=== PATIENT | female | born 2000 | race American Indian/Alaskan Native ===

== ENCOUNTER 2020-12-19 19:13 | Emergency (ER) | payer OTHER, SELFPAY ==
--- NOTE | 2020-12-19 19:22 | Event Note ---
ED Screening Note ED Screening Note: Patient is a 20-year-old female presents emergency room complaints of shortness of breath that occurred today she has associated pain when she takes a deep breath and CP She tested positive for COVID-19 She has been feeling sick for approximately 5 days she has associated generalized body aches, generalized weakness, fever, chills, vomiting states she is only been able to tolerate water she is on oral control pills This initial assessment/diagnostic orders/clinical plan/treatment(s) is/are subject to change based on patients health status, clinical progression and re- assessment by fellow clinical providers in the ED. Further treatment and workup at subsequent clinical providers discretion. Patient/guardian urged not to elope from the ED as their condition may be serious if not clinically assessed and managed. Initial orders include: labs, EKG, XR
[2020-12-19] MEDS ORDERED: ONDANSETRON 4 MG/2 ML INJ IV ONE (19:53)
[2020-12-19] MEDS ORDERED: SODIUM CHLORIDE 0.9% 1000 ML 1,000 ML IV ONE (19:53)
--- NOTE | 2020-12-19 19:53 | Emergency Department Report ---
HPI - General Chief Complaint: Dyspnea/Respdistress Time Seen by Provider: 12/19/20 19:19 - HPI HPI: This is a 20-year-old -[place] female presents to the emergency department with the complaint of a 4 to 5-day history of nausea with vomiting and body aches, intermittent fever, and a 2-day history of shortness of breath. The patient was tested last Sunday for COVID-19 and found out the next day that she was positive. She has a past medical history of anemia. Due to the nausea with vomiting, the patient has not been able to take anything for her symptoms over the past few days and says that she has not been able to keep down any food or liquids. No recent travel or sick contacts at home. She denies any tobacco or illicit drug use. She denies any chest pain, lower extremity swelling, constipation, diarrhea but does have an intermittent cough. ED Past Medical Hx - Past Medical History Previous Medical History?: Yes Additional medical history: Anemia - Medications Home Medications: Home Medications Medication Instructions Recorded Confirmed Last Taken Type Albuterol Mdi (or & Nicu Only) 2 puff IH QID PRN #8.5 gram 12/19/20 Unknown Rx [ProAir HFA Inhaler] Ondansetron [Zofran Odt] 4 mg PO Q8HR PRN #15 tab.rapdis 12/19/20 Unknown Rx ED Review of Systems ROS: Stated complaint: COVID+/CINTHIA Other details as noted in HPI Comment: All other systems reviewed and negative Constitutional: chills, fever Eyes: denies: eye pain, vision change ENT: denies: ear pain, throat pain Respiratory: cough, shortness of breath Cardiovascular: denies: chest pain, edema Gastrointestinal: nausea, vomiting Genitourinary: denies: dysuria, discharge Musculoskeletal: myalgia. denies: joint swelling Skin: denies: rash, lesions Neurological: denies: numbness, paresthesias Physical Exam - Physical Exam Vital Signs: Vital Signs 12/19/20 19:16 Temperature 99.8 F H Pulse Rate 134 H Respiratory 30 H Rate O2 Sat by Pulse 100 Oximetry Physical Exam: GENERAL: The patient is well-developed well-nourished. HENT: Normocephalic. Atraumatic. Patient has moist mucous membranes. EYES: Extraocular motions are intact. NECK: Supple. Trachea is midline. CHEST/LUNGS: Clear to auscultation. Mild tachypnea, but no accessory muscle use. No conversational dyspnea. There is no respiratory distress noted. HEART/CARDIOVASCULAR: Regular. There is mild tachycardia. There is no murmur. ABDOMEN: Abdomen is soft, nontender. Patient has normal bowel sounds. There is no abdominal distention. SKIN: Skin is warm and dry. NEURO: The patient is awake, alert, and oriented. The patient is cooperative. The patient has no focal neurologic deficits. Normal speech. MUSCULOSKELETAL: There is no tenderness or deformity. There is no limitation range of motion. ED Course Vital Signs 12/19/20 19:16 Temperature 99.8 F H Pulse Rate 134 H Respiratory 30 H Rate O2 Sat by Pulse 100 Oximetry ED Medical Decision Making - Lab Data Result diagrams: 12/19/20 20:43 12/19/20 19:34 Lab Results 12/19/20 12/19/20 12/19/20 Range/Units 19:34 19:34 19:34 WBC (4.5-11.0) K/mm3 RBC (3.65-5.03) M/mm3 Hgb (10.1-14.3) gm/dl Hct (30.3-42.9) % MCV (79-97) fl MCH (28-32) pg MCHC (30-34) % RDW (13.2-15.2) % Plt Count (140-440) K/mm3 Lymph % (Auto) (13.4-35.0) % Mitchell % (Auto) (0.0-7.3) % Eos % (Auto) (0.0-4.3) % Baso % (Auto) Lymph # (Auto) (1.2-5.4) K/mm3 Mitchell # (Auto) (0.0-0.8) K/mm3 Eos # (Auto) (0.0-0.4) K/mm3 Baso # (Auto) (0.0-0.1) K/mm3 Seg Neutrophils % (40.0-70.0) % Seg Neutrophils # (1.8-7.7) K/mm3 D-Dimer 466.75 H (0-234) ng/mlDDU Sodium 137 (137-145) mmol/L Potassium 3.7 (3.6-5.0) mmol/L Chloride 98.7 (98-107) mmol/L Carbon Dioxide 24 (22-30) mmol/L Anion Gap 18 mmol/L BUN 10 (7-17) mg/dL Creatinine 1.2 (0.6-1.2) mg/dL Estimated GFR 57 ml/min BUN/Creatinine Ratio 8 % Glucose 88 (65-100) mg/dL Calcium 9.2 (8.4-10.2) mg/dL Total Bilirubin 0.20 (0.1-1.2) mg/dL AST 27 (5-40) units/L ALT 16 (7-56) units/L Alkaline Phosphatase 51 (35-129) units/L Troponin T (0.00-0.029) ng/mL NT-Pro-B Natriuret Pep (0-450) pg/mL Total Protein 8.4 H (6.3-8.2) g/dL Albumin 4.0 (3.9-5) g/dL Albumin/Globulin Ratio 0.9 % Lipase 52 (13-60) units/L HCG, Qual Negative (Negative) 12/19/20 12/19/20 Range/Units 19:34 20:43 WBC 3.7 L (4.5-11.0) K/mm3 RBC 3.97 (3.65-5.03) M/mm3 Hgb 12.0 (10.1-14.3) gm/dl Hct 34.9 (30.3-42.9) % MCV 88 (79-97) fl MCH 30 (28-32) pg MCHC 34 (30-34) % RDW 12.8 L (13.2-15.2) % Plt Count 185 (140-440) K/mm3 Lymph % (Auto) 37.3 H (13.4-35.0) % Mitchell % (Auto) 14.4 H (0.0-7.3) % Eos % (Auto) 1.0 (0.0-4.3) % Baso % (Auto) [employer] Lymph # (Auto) 1.4 (1.2-5.4) K/mm3 Mitchell # (Auto) 0.5 (0.0-0.8) K/mm3 Eos # (Auto) 0.0 (0.0-0.4) K/mm3 Baso # (Auto) 0.0 (0.0-0.1) K/mm3 Seg Neutrophils % 46.6 (40.0-70.0) % Seg Neutrophils # 1.7 L (1.8-7.7) K/mm3 D-Dimer (0-234) ng/mlDDU Sodium (137-145) mmol/L Potassium (3.6-5.0) mmol/L Chloride (98-107) mmol/L Carbon Dioxide (22-30) mmol/L Anion Gap mmol/L BUN (7-17) mg/dL Creatinine (0.6-1.2) mg/dL Estimated GFR ml/min BUN/Creatinine Ratio % Glucose (65-100) mg/dL Calcium (8.4-10.2) mg/dL Total Bilirubin (0.1-1.2) mg/dL AST (5-40) units/L ALT (7-56) units/L Alkaline Phosphatase (35-129) units/L Troponin T < 0.010 (0.00-0.029) ng/mL NT-Pro-B Natriuret Pep 11.87 (0-450) pg/mL Total Protein (6.3-8.2) g/dL Albumin (3.9-5) g/dL Albumin/Globulin Ratio % Lipase (13-60) units/L HCG, Qual (Negative) - Radiology Data Radiology results: report reviewed, image reviewed interpreted by me: Chest x-ray does not show any acute process. There are no pleural effusions, obvious pneumonia and there is no pneumothorax. No widened mediastinum. CTA chest with contrast INDICATION : SOB, elevated dimer. TECHNIQUE: Axial imaging performed through the chest, with contrast bolus timing set to maximize opacification of the pulmonary arteries. 3-plane MIP reformatted images were obtained. All CT scans at this location are performed using CT dose reduction for ALARA by means of automated exposure control. 100 mL of intravenous contrast administered. COMPARISON: None FINDINGS: Bolus/PTE: Contrast bolus timing is adequate. No filling defect is present to suggest PTE. Mediastinum: Heart and great vessels appear normal. No pathologic mediastinal adenopathy. Lungs: There is minimal bibasilar dependent atelectasis. Lungs are otherwise clear. Upper abdomen: Limited imaging of the upper abdomen shows nothing acute. Bones: Degenerative changes in the spine with nothing acute. IMPRESSION: Negative for PTE. Clear lungs. - Medical Decision Making This patient presents to the emergency department with a complaint of some shortness of breath and nausea with vomiting after being diagnosed with COVID-19 about 5 days ago. The patient did present with a low-grade fever, tachycardia, and some tachypnea. By the time she was back in room #40 the tachycardia and tachypnea had improved, but not yet resolved. An IV was placed and she was given Zofran and a liter of IV fluid resuscitation. Chest x-ray does not show any pneumonia, pleural effusions, pneumothorax, widened mediastinum, or any other acute process. Patient's labs are mostly unremarkable including CBC, metabolic panel, lipase, and the patient is not . She did have an elevated D-dimer level, and for this reason the patient had a CT angiography of the chest. This CT imaging did not show any PE or any other acute process. She was reevaluated multiple times over multiple hours and appears improved. The tachycardia and tachypnea have resolved. The patient is able to pass an oral challenge. She was walked around the emergency department and did not have any oxygen desaturation or significant increased work of breathing. For all these reasons the patient appears safe for discharge home at this time. She has been given a prescription for Zofran ODT and an albuterol inhaler. She will return to the ER with any worsening of her symptoms or with any acute distress. Critical Care Time: No Critical care attestation.: If time is entered above; I have spent that time in minutes in the direct care of this critically ill patient, excluding procedure time. ED Disposition Clinical Impression: COVID-19, Shortness of breath Nausea & vomiting Qualifiers: Vomiting type: unspecified Vomiting Intractability: non-intractable Qualified Code(s): R11.2 - Nausea with vomiting, unspecified Disposition: DC-01 TO HOME OR SELFCARE Is pt being admited?: No Condition: Stable Instructions: COVID-19, Shortness of Breath, Adult, Nausea and Vomiting, Adult, Prevent the Spread of COVID-19 if You Are Sick - [facility] [place] Additional Instructions: Given your COVID-19 infection, please isolate/quarantine yourself from anybody who is not vaccinated, who is immunocompromised, elderly, young, chronically ill or debilitated. Please follow-up with a primary care physician. Increase your oral rehydration. Return to the emergency department with any worsening of your symptoms, new or concerning symptoms not addressed during this current emergency department visit, or with any acute distress. Prescriptions: Albuterol Mdi (or & Nicu Only) [ProAir HFA Inhaler] 2 puff IH QID PRN #8.5 gram PRN Reason: Shortness Of Breath Ondansetron [Zofran Odt] 4 mg PO Q8HR PRN #15 tab.rapdis PRN Reason: Nausea Referrals: PRIMARY CARE, [Primary Care Provider] - 2-3 Days Time of Disposition: 23:46
[2020-12-19 20:41] LABS: Calcium 9.2 mg/dL (8.4-10.2)
[2020-12-19 21:00] LABS: Hematocrit 34.9 % (30.3-42.9); Lymphocytes # (Auto) 1.4 K/mm3 (1.2-5.4); Lymphocytes % (Auto) 37.3 % (13.4-35.0); Mean Corpuscular HGB Conc 34 % (30-34); Mean Corpuscular Volume 88 fl (79-97); Monocytes # (Auto) 0.5 K/mm3 (0.0-0.8); Monocytes % (Auto) 14.4 % (0.0-7.3); Platelet Count 185 K/mm3 (140-440); Red Blood Count 3.97 M/mm3 (3.65-5.03); Red Cell Distribution Width 12.8 % (13.2-15.2)
[2020-12-19] MEDS ORDERED: ACETAMINOPHEN 325 MG TAB PO ONE (21:04)
--- NOTE | 2020-12-19 21:20 | XRay Report ---
CHEST 1 VIEW 12/19/2020 8:13 PM INDICATION / CLINICAL INFORMATION: SOB. COMPARISON: None available. FINDINGS: SUPPORT DEVICES: None. HEART / MEDIASTINUM: No significant abnormality. LUNGS / PLEURA: No significant pulmonary or pleural abnormality. No pneumothorax. ADDITIONAL FINDINGS: No significant additional findings. IMPRESSION: 1. No acute findings. Signer Name: Luis Redman MD Signed: 12/19/2020 9:16 PM Workstation Name: [id number]
--- NOTE | 2020-12-19 23:23 | Cat Scan Report ---
CTA chest with contrast INDICATION : SOB, elevated dimer. TECHNIQUE: Axial imaging performed through the chest, with contrast bolus timing set to maximize opa cification of the pulmonary arteries. 3-plane MIP reformatted images were obtained. All CT scans at this location are performed using CT dose reduction for ALARA by means of automated exposure control. 100 mL of intravenous contrast administered. COMPARISON: None FINDINGS: Bolus/PTE: Contrast bolus timing is adequate. No filling defect is present to suggest PTE. Mediastinum: Heart and great vessels appear normal. No pathologic mediastinal adenopathy. Lungs: There is minimal bibasilar dependent atelectasis. Lungs are otherwise clear. Upper abdomen: Limited imaging of the upper abdomen shows nothing acute. Bones: Degenerative changes in the spine with nothing acute. IMPRESSION: Negative for PTE. Clear lungs. Signer Name: Mikael Wray MD Signed: 12/19/2020 11:18 PM Workstation Name: [id number]
[2020-12-20 00:09] VITALS: BP 132/77
--- NOTE | 2020-12-20 14:32 | Electrocardiograph Report ---
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
== END 2020-12-20 00:03 | disposition home or self-care (01) ==
LOC: ED 19:13
DX: U07.1 COVID-19 (principal); R11.2 Nausea with vomiting, unspecified; R06.02 Shortness of breath; M79.18 Myalgia, other site
CPT/HCPCS: 36415; 71045; 71275; 80053; 83690; 83880; 84484; 84703; 85025; 85379; 93005; 96361; 96374; 99284; J2405; J7030; Q9967

== ENCOUNTER 2021-01-18 01:45 | Emergency (ER) | payer SELFPAY | END 2021-01-18 05:24 | LOC: ED 01:45 | DX: Z00.00 Encounter for general adult medical examination without abnormal findings (principal); Z53.21 Procedure and treatment not carried out due to patient leaving prior to being seen by health care provider ==

== ENCOUNTER 2021-05-04 00:49 | Emergency (ER) | payer SELFPAY ==
[2021-05-04] MEDS ORDERED: SODIUM CHLORIDE 0.9% 1000 ML 1,000 ML IV ONE (01:39)
[2021-05-04 02:01] LABS: Basophils % (Auto) 0.3 % (0.0-1.8); Eosinophils # (Auto) 0.2 K/mm3 (0.0-0.4); Eosinophils % (Auto) 1.5 % (0.0-4.3); Hematocrit 38.2 % (30.3-42.9); Hemoglobin 12.1 gm/dl (10.1-14.3); Lymphocytes # (Auto) 1.2 K/mm3 (1.2-5.4); Lymphocytes % (Auto) 11.2 % (13.4-35.0); Mean Corpuscular HGB Conc 32 % (30-34); Mean Corpuscular Volume 93 fl (79-97); Monocytes # (Auto) 1.3 K/mm3 (0.0-0.8); Monocytes % (Auto) 12.4 % (0.0-7.3); Platelet Count 245 K/mm3 (140-440); Red Blood Count 4.11 M/mm3 (3.65-5.03); Red Cell Distribution Width 13.6 % (13.2-15.2)
[2021-05-04 02:23] LABS: Alanine Aminotransferase 8 units/L (7-56); Albumin 3.8 g/dL (3.9-5); BUN/Creatinine Ratio 8; Blood Urea Nitrogen 8 mg/dL (7-17); Calcium 9.2 mg/dL (8.4-10.2); Hemolysis Index 0
--- NOTE | 2021-05-04 02:44 | Emergency Department Report ---
ED General Adult HPI - General Chief complaint: Sore Throat Stated complaint: SORE THROAT/NECK PAIN Time Seen by Provider: 05/04/21 02:38 Source: patient Mode of arrival: Ambulatory Limitations: No Limitations - History of Present Illness Initial comments: Patient 21-year-old female who presents for throat pain x3 days. Patient states history of recurrent strep throat however symptoms are worse this time with malaise fevers chills. There is no stridor no shortness of breath no wheezing there has been no nausea vomiting. Patient states 4/10 throat pain with swallowing described as burning stinging. Symptoms are relieved by nothing tried. - Related Data Previous Rx's Medication Instructions Recorded Last Taken Type Albuterol Mdi (or & Nicu Only) 2 puff IH QID PRN #8.5 gram 12/19/20 Unknown Rx [ProAir HFA Inhaler] Ondansetron [Zofran Odt] 4 mg PO Q8HR PRN #15 tab.rapdis 12/19/20 Unknown Rx Acetaminophen/Codeine [Tylenol 1 tab PO Q6H PRN #12 tab 05/04/21 Unknown Rx /Codeine # 3 tab] Benzocaine/Mentho [Cepacol X 1 each MM Q3H PRN #24 packet 05/04/21 Unknown Rx Strength] Clindamycin [Clindamycin CAP] 300 mg PO Q6H 7 Days #28 capsule 05/04/21 Unknown Rx dexAMETHasone [Decadron] 4 mg PO BID 5 Days #10 tablet 05/04/21 Unknown Rx Allergies Allergy/AdvReac Type Severity Reaction Status Date / Time trazodone Allergy Unknown Verified 12/19/20 19:16 ED Review of Systems ROS: Stated complaint: SORE THROAT/NECK PAIN Other details as noted in HPI Constitutional: chills, fever, malaise Eyes: denies: eye pain, eye discharge, vision change ENT: throat pain, congestion. denies: ear pain, epistaxis Respiratory: denies: cough, orthopnea, shortness of breath, SOB with exertion, stridor, wheezing Cardiovascular: denies: chest pain, palpitations Endocrine: no symptoms reported Gastrointestinal: denies: abdominal pain, nausea, diarrhea Genitourinary: denies: urgency, dysuria, discharge Musculoskeletal: denies: back pain, joint swelling, arthralgia Skin: denies: rash, lesions Neurological: denies: headache, weakness, paresthesias Psychiatric: denies: anxiety, depression Hematological/Lymphatic: denies: easy bleeding, easy bruising ED Past Medical Hx - Past Medical History Previous Medical History?: No Additional medical history: Anemia - Surgical History Past Surgical History?: No - Medications Home Medications: Home Medications Medication Instructions Recorded Confirmed Last Taken Type Albuterol Mdi (or & Nicu Only) 2 puff IH QID PRN #8.5 gram 12/19/20 Unknown Rx [ProAir HFA Inhaler] Ondansetron [Zofran Odt] 4 mg PO Q8HR PRN #15 tab.rapdis 12/19/20 Unknown Rx Acetaminophen/Codeine [Tylenol 1 tab PO Q6H PRN #12 tab 05/04/21 Unknown Rx /Codeine # 3 tab] Benzocaine/Mentho [Cepacol X 1 each MM Q3H PRN #24 packet 05/04/21 Unknown Rx Strength] Clindamycin [Clindamycin CAP] 300 mg PO Q6H 7 Days #28 capsule 05/04/21 Unknown Rx dexAMETHasone [Decadron] 4 mg PO BID 5 Days #10 tablet 05/04/21 Unknown Rx ED Physical Exam - General Limitations: No Limitations General appearance: alert, in no apparent distress - Head Head exam: Present: normocephalic, normal inspection - Eye Eye exam: Present: normal appearance, PERRL, EOMI. Absent: conjunctival injection, nystagmus Pupils: Present: normal accommodation - ENT ENT exam: Present: mucous membranes moist, TM's normal bilaterally, normal external ear exam - Expanded ENT Exam Expanded Ear exam: Present: normal external inspection Mouth exam: Present: normal external inspection. Absent: trismus Throat exam: Positive: tonsillar erythema, tonsillomegaly, tonsillar exudate, other (uvula midline no exudate airway is patent). Negative: R peritonsillar mass, L peritonsillar mass - Neck Neck exam: Present: normal inspection, full ROM, lymphadenopathy. Absent: tenderness, meningismus, thyromegaly - Expanded Neck Exam Expanded Neck exam: Absent: midline deformity, anterior neck swelling, thyroid mass, carotid bruit, tracheal deviation - Respiratory Respiratory exam: Present: normal lung sounds bilaterally. Absent: respiratory distress, wheezes, stridor, chest wall tenderness, prolonged expiratory - Cardiovascular Cardiovascular Exam: Present: normal rhythm, normal heart sounds. Absent: systolic murmur, diastolic murmur, rubs, gallop - GI/Abdominal GI/Abdominal exam: Present: soft, normal bowel sounds. Absent: distended, tenderness, guarding, rebound, rigid, bruit, hernia - Rectal Rectal exam: Present: deferred - Extremities Exam Extremities exam: Present: normal inspection, full ROM, normal capillary refill. Absent: tenderness, calf tenderness - Back Exam Back exam: Present: normal inspection, full ROM. Absent: CVA tenderness (R), CVA tenderness (L), paraspinal tenderness, vertebral tenderness - Neurological Exam Neurological exam: Present: alert, oriented X3, CN II-XII intact, normal gait, reflexes normal. Absent: motor sensory deficit - Expanded Neurological Exam Expanded Patient oriented to: Present: person, place, time Speech: Present: fluid speech Cranial nerves: EOM's Intact: Normal, Gag Reflex: Normal, Tongue Deviation: Normal, Nystagmus: Normal, Facial Sensation: Normal Motor strength exam: RUE: 5, LUE: 5, RLE: 5, LLE: 5 Best Eye Response ([place]): (4) open spontaneously Best Motor Response ([place]): (6) obeys commands Best Verbal Response ([place]): (5) oriented Patrick Total: 15 - Psychiatric Psychiatric exam: Present: normal affect, normal mood - Skin Skin exam: Present: warm, dry, intact, normal color. Absent: rash ED Course Vital Signs 05/04/21 00:56 Temperature 97.6 F Pulse Rate 104 H Respiratory 16 Rate Blood Pressure 115/69 [Left] O2 Sat by Pulse 100 Oximetry ED Medical Decision Making - Lab Data Result diagrams: 05/04/21 01:43 05/04/21 01:43 - Radiology Data Radiology results: report reviewed, image reviewed CT NECK WITH INTRAVENOUS CONTRAST AND MULTIPLANAR RECONSTRUCTION CLINICAL HISTORY: r/o peritonsillar abscess TECHNIQUE: 2.5 mm thick contiguous axial scans were obtained from the skull base down to the aortic arch during intravenous contrast administration. In addition to evaluation of axial source images sagittal and coronal multiplanar reconstructions were produced and reviewed for this report. Contrast dose report: ML administered intravenously All CT imaging studies performed at this facility utilize dose modulation, iterative reconstruction or weight based dosing, if appropriate, to obtain the lowest achievable radiation dose. FINDINGS: AIRWAY: Marked bilaterally symmetrical enlargement of the palatine tonsils are noted. Tonsillar tissue is prominent. Increased soft tissue fullness in the posterior nasopharynx represents enlargement of adenoidal tissue. The palatine tonsils are in contact in the midline. This produces narrowing of the oropharyngeal airway. Careful clinical assessment regarding the adequacy of the patient's airway is advised. There is no indication of tonsillar, peritonsillar or parapharyngeal abscess. LYMPH NODES: Markedly enlarged level 2 lymph nodes are demonstrated bilaterally. The largest of these nodes are present in a jugulodigastric location bilaterally between the posterior margins of the submandibular salivary glands and anterior margins of the sternocleidomastoid muscles where large nodes measure approximately 2.7 x 2.2 x 2.2 cm on the left and 2.8 x 2.6 x 1.3 cm left. Additional lymph nodes are identified in level 1B bilaterally. While these could represent reactive inflammatory lymph nodes interval clinical follow-up to resolution is advised to exclude the possibility of lymphoid malignancy. ORAL CAVITY/FLOOR OF MOUTH: No abnormalities are seen in evaluation of the oral cavity and tongue. The floor the mouth has a normal appearance. Multiple dental caries are observed. No indication of periodontal abscess is demonstrated MAJOR SALIVARY GLANDS: The parotid and submandibular salivary glands have a normal appearance. NASAL CAVITY AND PARANASAL SINUSES: Ethmoid air cells, frontal sinuses and superior nasal cavity were excluded. Visualized paranasal sinuses inflammatory disease. ORBITS: The orbits are largely excluded from this examination. THYROID GLAND: The thyroid gland is normal in size and homogeneous in attenuation. No focal thyroid lesions are identified. TEMPORAL BONES:Mastoid air cells are normally pneumatized. CERVICAL SPINE: Evaluation of the cervical spine reveals no significant abnormality. Normal alignment is maintained. No significant degenerative changes are identified. LUNG APICES: Evaluation of the lung apices reveals no abnormality. There is no indication of lung nodule or infiltrate. The visualized portions of the superior mediastinum have an unremarkable appearance. CONTRAST ADMINISTRATION: Enhancement of normal vascular structures is demonstrated. No areas of abnormal contrast enhancement are identified. Additional findings: A number of nasal and labial piercings are identified. IMPRESSION: 1. Bilateral cervical lymphadenopathy. In addition there is marked enlargement of the palatine tonsils and prominence of adenoidal lymphoid tissue and lingual tonsils. These findings may be on inflammatory basis, however, follow-up to clinical resolution is advised to exclude the possibility of lymphoid malignancy. 2. No indication of tonsillar, peritonsillar or parapharyngeal abscess is observed. Signer Name: Tra Boyer MD Signed: 05/04/2021 4:08 AM Workstation Name: [id number] Transcribed By: Dictated By: Tra oByer MD Electronically Authenticated By: Tra Boyer MD Signed Date/Time: 05/04/21 0408 - Medical Decision Making CT soft tissue neck bilateral cervical lymphadenopathy, no peritonsillar abscess, patient symptoms are improved with medications given in ED. Patient will be DC'd home with prescriptions, patient will follow up with ENT Surgery in 2 to 3 days, patient will return to emergency department should symptoms worsen. Patient verbalized agreement and understanding with discharge plan. Patient is currently alert oriented x3 airway remains patent there is no stridor no wheezing no respiratory distress. Critical care attestation.: If time is entered above; I have spent that time in minutes in the direct care of this critically ill patient, excluding procedure time. ED Disposition Clinical Impression: Acute bacterial tonsillitis, Cervical lymphadenopathy Disposition: HOME / SELF CARE / HOMELESS Is pt being admited?: No Does the pt Need Aspirin: No Condition: Stable Instructions: Tonsillitis, Lymphadenopathy Additional Instructions: Take medications as prescribed, follow-up with ENT as scheduled. Follow-up with your primary care doctor in 2 to 3 days. Return to emergency department should symptoms worsen. Prescriptions: Benzocaine/Mentho [Cepacol X Strength] 1 each MM Q3H PRN #24 packet PRN Reason: Throat Pain Clindamycin [Clindamycin CAP] 300 mg PO Q6H 7 Days #28 capsule dexAMETHasone [Decadron] 4 mg PO BID 5 Days #10 tablet Acetaminophen/Codeine [Tylenol /Codeine # 3 tab] 1 tab PO Q6H PRN #12 tab PRN Reason: Pain Referrals: BERNIE MEJIA MD [Staff Physician] - 3-5 Days ALONDRA MCCOY MD [Staff Physician] - 3-5 Days Forms: Work/School Release Form(ED) Time of Disposition: 05:12
[2021-05-04 03:56] LABS: Bilirubin,Urine NEG (Negative); Blood,Urine NEG (Negative); Color,Urine Amber (Yellow); Mucus,Urine 3+ /HPF
[2021-05-04 03:57] LABS: HCG Qualitative,Urine Negative (Negative)
--- NOTE | 2021-05-04 04:13 | Cat Scan Report ---
CT NECK WITH INTRAVENOUS CONTRAST AND MULTIPLANAR RECONSTRUCTION CLINICAL HISTORY: r/o peritonsillar abscess TECHNIQUE: 2.5 mm thick contiguous axial scans were obtained from the skull base down to the aortic arch during intravenous contrast administration. In addition to evaluation of axial source images sagittal and co shelly multiplanar reconstructions were produced and reviewed for this report. Contrast dose report: ML administered intravenously All CT imaging studies performed at this facility utilize dose modulation, iterative reconstruction o r weight based dosing, if appropriate, to obtain the lowest achievable radiation dose. FINDINGS: AIRWAY: Marked bilaterally symmetrical enlargement of the palatine tonsils are noted. Tonsillar tissu e is prominent. Increased soft tissue fullness in the posterior nasopharynx represents enlargement of adenoidal tissue. The palatine tonsils are in contact in the midline. This produces narrowing of the oropharyngeal airway. Careful clinical assessment regarding the adequacy of the patient's airway is advised. There is no indication of tonsillar, peritonsillar or parapharyngeal abscess. LYMPH NODES: Markedly enlarged level 2 lymph nodes are demonstrated bilaterally. The largest of these nodes are present in a jugulodigastric location bilaterally between the posterior margins of the sub mandibular salivary glands and anterior margins of the sternocleidomastoid muscles where large nodes measure approximately 2.7 x 2.2 x 2.2 cm on the left and 2.8 x 2.6 x 1.3 cm left. Additional lymph no karlos are identified in level 1B bilaterally. While these could represent reactive inflammatory lymph n odes interval clinical follow-up to resolution is advised to exclude the possibility of lymphoid flip gnancy. ORAL CAVITY/FLOOR OF MOUTH: No abnormalities are seen in evaluation of the oral cavity and tongue. Th e floor the mouth has a normal appearance. Multiple dental caries are observed. No indication of mary odontal abscess is demonstrated MAJOR SALIVARY GLANDS: The parotid and submandibular salivary glands have a normal appearance. NASAL CAVITY AND PARANASAL SINUSES: Ethmoid air cells, frontal sinuses and superior nasal cavity were excluded. Visualized paranasal sinuses inflammatory disease. ORBITS: The orbits are largely excluded from this examination. THYROID GLAND: The thyroid gland is normal in size and homogeneous in attenuation. No focal thyroid l esions are identified. TEMPORAL BONES:Mastoid air cells are normally pneumatized. CERVICAL SPINE: Evaluation of the cervical spine reveals no significant abnormality. Normal alignment is maintained. No significant degenerative changes are identified. LUNG APICES: Evaluation of the lung apices reveals no abnormality. There is no indication of lung nod ule or infiltrate. The visualized portions of the superior mediastinum have an unremarkable appearanc e. CONTRAST ADMINISTRATION: Enhancement of normal vascular structures is demonstrated. No areas of abnor mal contrast enhancement are identified. Additional findings: A number of nasal and labial piercings are identified. IMPRESSION: 1. Bilateral cervical lymphadenopathy. In addition there is marked enlargement of the palatine tonsil s and prominence of adenoidal lymphoid tissue and lingual tonsils. These findings may be on inflammat ory basis, however, follow-up to clinical resolution is advised to exclude the possibility of lymphoi d malignancy. 2. No indication of tonsillar, peritonsillar or parapharyngeal abscess is observed. Signer Name: Tra Boyer MD Signed: 05/04/2021 4:08 AM Workstation Name: [id number]
[2021-05-04 05:51] VITALS: BP 130/80
== END 2021-05-04 05:30 | disposition home or self-care (01) ==
LOC: ED 00:49
DX: J03.90 Acute tonsillitis, unspecified (principal); R59.1 Generalized enlarged lymph nodes
CPT/HCPCS: 36415; 70491; 80053; 81001; 81025; 82140; 85025; 87040; 96365; 99284; J7030; J7502; Q9967; Q0162

== ENCOUNTER 2021-06-21 07:49 | Emergency (ER) | payer SELFPAY ==
[2021-06-21] MEDS ORDERED: IBUPROFEN 800 MG TAB PO ONE (08:29)
[2021-06-21] MEDS ORDERED: AMOXICILLIN 500 MG CAP PO ONE (08:29)
--- NOTE | 2021-06-21 08:29 | Emergency Department Report ---
ED ENT HPI - General Chief complaint: Dental/Oral Stated complaint: R SIDE MOUTH PAIN Time Seen by Provider: 06/21/21 08:09 Source: patient Mode of arrival: Ambulatory Limitations: No Limitations - History of Present Illness Initial comments: 21 YO COMES TO ER WITH R LOWER DENTAL PAIN RADIATING TO HER HEAD AND R SHOULDER. HAS NOT SEEN DMD complaint: tooth pain -: Gradual, hour(s) Severity: mild Quality: aching Consistency: constant Improves with: none Worsens with: none Context- Dental: history of dental caries Associated Symptoms: toothache. denies: fever, cough, gum swelling, pain with swallowing, sore throat, tinnitus, hearing loss, discharge from ear, rhinorrhea - Related Data Previous Rx's Medication Instructions Recorded Last Taken Type Amoxicillin [Trimox CAP] 500 mg PO BID #20 capsule 06/21/21 Unknown Rx Allergies Allergy/AdvReac Type Severity Reaction Status Date / Time trazodone Allergy Unknown Verified 06/21/21 07:52 ED Dental HPI - General Chief complaint: Dental/Oral Stated complaint: R SIDE MOUTH PAIN Time Seen by Provider: 06/21/21 08:09 Source: patient Mode of arrival: Ambulatory Limitations: No Limitations - Related Data Previous Rx's Medication Instructions Recorded Last Taken Type Amoxicillin [Trimox CAP] 500 mg PO BID #20 capsule 06/21/21 Unknown Rx Allergies Allergy/AdvReac Type Severity Reaction Status Date / Time trazodone Allergy Unknown Verified 06/21/21 07:52 ED Review of Systems ROS: Stated complaint: R SIDE MOUTH PAIN Other details as noted in HPI Comment: All other systems reviewed and negative ED Past Medical Hx - Past Medical History Previous Medical History?: Yes Additional medical history: Anemia- BORDERLINE PERSONALITY - Surgical History Past Surgical History?: No - Family History Family history: no significant - Social History Smoking Status: Never Smoker Substance Use Type: Alcohol - Medications Home Medications: Home Medications Medication Instructions Recorded Confirmed Last Taken Type Amoxicillin [Trimox CAP] 500 mg PO BID #20 capsule 06/21/21 Unknown Rx ED Physical Exam - General Limitations: No Limitations General appearance: alert, in no apparent distress - Head Head exam: Present: atraumatic, normocephalic - Eye Eye exam: Present: normal appearance - ENT ENT exam: Present: mucous membranes moist - Expanded ENT Exam Expanded Mouth exam: Absent: drooling, trismus, muffled voice, tongue normal, tongue elevation Teeth exam: Present: dental caries 1 - Other (CARIES) - Neck Neck exam: Present: normal inspection - Respiratory Respiratory exam: Present: normal lung sounds bilaterally. Absent: respiratory distress - Cardiovascular Cardiovascular Exam: Present: regular rate, normal rhythm. Absent: systolic murmur, diastolic murmur, rubs, gallop - GI/Abdominal GI/Abdominal exam: Present: soft, normal bowel sounds - Extremities Exam Extremities exam: Present: normal inspection - Back Exam Back exam: Present: normal inspection - Neurological Exam Neurological exam: Present: alert, oriented X3 - Psychiatric Psychiatric exam: Present: normal affect, normal mood - Skin Skin exam: Present: warm, dry, intact, normal color. Absent: rash ED Course Vital Signs 06/21/21 06/21/21 07:50 09:06 Temperature 98 F 97.9 F Pulse Rate 82 69 Respiratory 18 16 Rate Blood Pressure 100/58 108/71 [Left] O2 Sat by Pulse 100 98 Oximetry ED Medical Decision Making - Medical Decision Making Vital Signs 06/21/21 06/21/21 07:50 09:06 Temperature 98 F 97.9 F Pulse Rate 82 69 Respiratory 18 16 Rate Blood Pressure 100/58 108/71 [Left] O2 Sat by Pulse 100 98 Oximetry TAKING PO WO DIFFICULTY ABC INTACT VSS AMOX AND MOTRIN IN ER EDUCATED ON DENTAL CARE- AND NEED TO SEE DMD FOR DEFINITIVE CARE. DC HOME WITH DC PLAN OF CARE INCLUDING DIET, ACTIVITY, MEDS, AND FOLLOW UP. SHE VERBALIZES UNDERSTANDING OF PLAN OF CARE. - Differential Diagnosis DENTAL PAIN Critical care attestation.: If time is entered above; I have spent that time in minutes in the direct care of this critically ill patient, excluding procedure time. ED Disposition Clinical Impression: Pain, dental Disposition: 01 HOME / SELF CARE / HOMELESS Is pt being admited?: No Does the pt Need Aspirin: No Condition: Stable Instructions: Acute Pain, Adult Additional Instructions: MOTRIN OR TYLENOL FOR PAIN OR FEVER MED ORDERED TODAY UNTIL GONE SEE DMD PUNEET REFERRALS BELOW STAY WELL HYDRATED WITH WATER Prescriptions: Amoxicillin [Trimox CAP] 500 mg PO BID #20 capsule Referrals: [facility] [Outside[facility] - 3-5 Days [facility] [Outside] - 3-5 Days Time of Disposition: 08:46
[2021-06-21 09:07] VITALS: BP 108/71
== END 2021-06-21 09:07 | disposition home or self-care (01) ==
LOC: ED 07:49
DX: K08.89 Other specified disorders of teeth and supporting structures (principal); Z88.8 Allergy status to other drugs, medicaments and biological substances; F10.20 Alcohol dependence, uncomplicated
CPT/HCPCS: 99282

== ENCOUNTER 2021-11-08 17:21 | Emergency (ER) | payer SELFPAY | END 2021-11-08 18:21 | disposition left against medical advice (07) | LOC: ED 17:21 | DX: Z11.3 Encounter for screening for infections with a predominantly sexual mode of transmission (principal); Z53.21 Procedure and treatment not carried out due to patient leaving prior to being seen by health care provider ==